=== PATIENT | female | born 1960 | race Caucasian/White ===

== ENCOUNTER 2025-02-09 09:17 | Outpatient (CLI) | payer MEDICARE, MEDICAID, SELFPAY ==
--- NOTE | ~2025-02-09 | MR_ITS ---
EXAMINATION: MR hip LT wo con DATE: 02/09/2025 10:07 INDICATION: Unilateral primary osteoarthritis of the left hip TECHNIQUE: Magnetic resonance imaging (MRI) of the left hip was performed without intravenous contra st. Sequences included full-field axial PD-weighted FS FSE and T1-weighted FSE, coronal of the pelvis with PD-weighted FS FSE, T2-weighted FSE and T1-weighted FSE, small field of view of the left hip w ith axial PD-weighted FS FSE, sagittal PD-weighted FS FSE, coronal PD-weighted FS FSE and coronal T2 weighted FSE. Additional radial T1-weighted FGR oriented orthogonal to the acetabular rim were obtai gideon for evaluation of the labrum. COMPARISON: 12/31/2024 and 11/17/2024 FINDINGS: Severe osteoarthritis at the left hip appears to progressed since the prior radiographs with anterosu peromedial predominant joint space narrowing. The articular cortex at the superior to superolateral a spect of the left humeral head appears irregular and slightly flattened relative to normal radius of curvature likely related to secondary remodeling. This can also be seen with osteonecrosis however al though there is prominent underlying subarticular edema-like signal change. There is not the typical underlying double line sign or distortion of the underlying trabecular pattern particularly on the co shaina T2-weighted images. There is mild subarticular edema-like signal change along the left acetabul um. The left acetabular labrum appears primarily thickened with amorphous increased signal consistent with likely chronic degeneration. Likely reactive moderate sized left hip joint effusion. There is m ild to moderate osteoarthritis at the contralateral right hip without evident osteonecrosis and with physiologic amount fluid in the joint space. No free fluid in the pelvis. Severe disc height loss with degenerative endplate changes at L5-S1. Mar row signal is otherwise unremarkable with no pathologic marrow replacing process. Relatively symmetri c partial tears of the distal aspect of the bilateral gluteus medius tendons with cephalad retraction of the myotendinous junction which lie approximately 2.5-3.5 cm above the level of the greater troch anteric insertions. The uterus is not identified and has likely been surgically resected. Mild divert iculosis along the sigmoid colon without adjacent inflammatory stranding to suggest diverticulitis. B ladder is normal. No pathologically enlarged pelvic or inguinal lymphadenopathy. IMPRESSION: 1. Significant interval progression in now severe left hip osteoarthritis with new irregular cortical contour at the superior and superolateral aspect of the left femoral head likely related to accelera donya osteoarthritis and secondary remodeling. 2. 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 3. Likely moderate-sized segment of a reactive left hip joint effusion. 4. Mild to moderate osteoarthritis at the contralateral right hip also with likely degenerative teari ng of the right acetabular labrum which is not diagnostically evaluated on the large [id number] im aging. 5. Severe spondylosis at the lumbosacral junction. 6. Likely partial tears of the distal bilateral gluteus medius tendons with mild proximal retraction of the myotendinous junctions. Reviewed, dictated and finalized at location A. IMPRESSION: 1. Significant interval progression in now severe left hip osteoarthritis with new irregular cortical contour at the superior and superolateral aspect of the left femoral head likely related to accelerated osteoarthritis and secondary re modeling. 2. 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 3. Likely moderate-sized segment of a reactive left hip joint effusion. 4. Mild to moderate osteoarthritis at the contralateral right hip also with lik michele degenerative tearing of the right acetabular labrum which is not diagnostic ally evaluated on the large [id number] imaging. 5. Severe spondylosis at the lumbosacral junction. 6. Likely partial tears of the distal bilateral gluteus medius tendons with mil d proximal retraction of the myotendinous junctions.
== END 2025-02-09 09:18 | disposition home or self-care (01) ==
LOC: MICIMG 09:18
PROVIDERS: PCP Internal Medicine; Visit Provider Physician Assistant Surgical
DX: M16.12 Unilateral primary osteoarthritis, left hip (principal)
CPT/HCPCS: 73721